=== PATIENT | male | born 1970 | race Caucasian/White ===

== ENCOUNTER 2017-06-11 18:14 | Emergency (ER) | payer OTHER ==
[~2017-06-11] VITALS: Ht 182.9 cm; Wt 117.6 kg
[~2017-06-11 18:14] MED LIST: ASPIR-LOW81 MG PO; BUSPAR10 MG PO; CLONAZEPAM0.5 M1 PO; CYMBALTA60 MG PO; DICLOFENAC SODI25 MG PO; DURAGESIC50 MCG TD; LIORESAL5 MG PO; NEURONTIN300 MG PO; PRILOSEC OTC20 MG PO; SIMVASTATIN40 MG PO; VICODIN 5-5001 EACH PO; WELLBUTRIN100 MG PO
[2017-06-11 19:09] LABS: MCH 29.2 PG (29.0-34.0); MCHC 34.5 G/DL (30.0-36.0); MCV 84.5 FL (86-99); MEAN PLAT.VOLUME 10.8 uM^3 (9.0-12.4); PLATELET COUNT 190 K/uL (156-360); RBC DIS.WIDTH-CV 12.4 % (11.8-14.6); RBC DIS.WIDTH-SD 37.4 % (39-53); RED BLOOD COUNT 4.97 M/uL (4.00-5.50); WHITE BLOOD COUNT 7.6 K/uL (4.1-10.2)
[2017-06-11 19:37] LABS: ADD MIUA? YES; BILIRUBIN NEGATIVE; BLOOD NEGATIVE; COLOR YELLOW ((YELLOW)); GLUCOSE (STRIP) NEGATIVE; KETONES NEGATIVE; LEUKOCYTES NEGATIVE; NITRITE NEGATIVE; PROTEIN (STRIP) NEGATIVE; SPECIFIC GRAVITY 1.016 (1.000-1.030); UROBILINOGEN 0.2 MG/DL (0.2-1.0)
[2017-06-11 19:45] LABS: BACTERIA NONE SEEN /HPF; EPITHELIAL CELLS NONE SEEN /HPF; MUCUS TRACE /LPF; RED BLOOD CELLS 0-5 /HPF (0-5); UCUL ADDED? NO; UNCLASSIFIED CRYSTALS 2+ /HPF; WHITE BLOOD CELLS 0-5 /HPF (0-5)
[2017-06-11 19:46] LABS: CHLORIDE 110 mEq/L (99-109); POTASSIUM 3.6 mEq/L (3.7-5.4); SODIUM 142 mEq/L (136-147)
[2017-06-11 19:47] LABS: GLUCOSE 117 mg/dL (70-99)
[2017-06-11 19:49] LABS: ANION GAP 10 MEQ/L (2-14)
[2017-06-11 19:51] LABS: GFR ESTIMATE (CALCULATED) > 59 mL/min/
[2017-06-11 19:52] LABS: UREA NITROGEN (BUN) 19 mg/dL (9-23)
[2017-06-11 20:51] VITALS: BP 128/87
== END 2017-06-11 20:57 | disposition home or self-care (01) ==
LOC: EME 18:14
DX: R55 Syncope and collapse (principal); Z87.891 Personal history of nicotine dependence; Z88.0 Allergy status to penicillin; Z88.6 Allergy status to analgesic agent
CPT/HCPCS: 71020; 80048; 81003; 85027; 93005; 99281; 99284